=== PATIENT | male | born 1975 | race Caucasian/White ===

== ENCOUNTER 2020-07-05 13:43 | Emergency (ER) | payer BC ==
[2020-07-05] MEDS ORDERED: Sodium Chloride 0.9% 10 ML Syringe FLUSH PRN (14:22)
[2020-07-05] MEDS ORDERED: Famotidine 20 MG/2 ML SDV IVPUSH ONE (14:23)
[2020-07-05] MEDS ORDERED: Ondansetron 4 MG/2 ML SDV IVPUSH ONE (14:23)
[2020-07-05] MEDS ORDERED: Sodium Chloride 0.9% 1,000 ML IV SCH (14:30)
[2020-07-05] MEDS ORDERED: HYDROmorphone 1 MG/ML Syringe IVPUSH ONE (14:53)
--- NOTE | 2020-07-05 15:39 | EDM.PDOC ---
ED HPI GENERAL MEDICAL PROBLEM - General Chief Complaint: Chest Pain Stated Complaint: CHEST PAIN Time Seen by Provider: 07/05/20 14:11 Source of Information: Reports: Patient History Limitations: Reports: No Limitations - History of Present Illness INITIAL COMMENTS - FREE TEXT/NARRATIVE: The patient presents with left sided chest pain and upper abdominal pain. This has been going on for a week. He has been drinking heavily for a few months. He says he quit a few days ago and he has been taking some kratom to help with the drinking. He ways when he takes it he has more pain in his abdomen. He had blood drawn yesterday for an appointment with Sagar Singh. His blood sugar was 402. His A1C is 8.3. His triglycerides were 1753. His cholesterol is 211. His HDL is 20. His lipase was 160. He has no history of heart disease. Onset: Gradual Duration: Week(s): (1) Location: Reports: Chest, Abdomen Quality: Reports: Sharp Severity: Moderate Improves with: Reports: None Worsens with: Reports: None Associated Symptoms: Reports: Chest Pain, Nausea/Vomiting. Denies: Cough, Fever/Chills, Headaches, Shortness of Breath Left Chest Pain Score (Numeric/FACES): 7 - Related Data Allergies Allergy/AdvReac Type Severity Reaction Status Date / Time No Known Allergies Allergy Verified 07/05/20 13:59 Home Meds: Home Meds ClonazePAM [KlonoPIN] 0.5 mg PO DAILY PRN 07/05/20 [History] Hydrocodone/Acetaminophen [Hydrocodone-Acetamin 5-325 mg] 1 - 2 each PO Q6HR PRN #10 tablet 07/05/20 [Rx] LORazepam [Ativan] 1 mg PO DAILY #18 tablet 07/05/20 [Rx] Omeprazole Magnesium [Prilosec Otc] 20 mg PO DAILY PRN 07/05/20 [History] Ondansetron [Zofran ODT] 4 mg PO Q6H PRN #20 tab.dis 07/05/20 [Rx] Past Medical History Cardiovascular History: Reports: High Cholesterol, Hypertension Gastrointestinal History: Reports: GERD Psychiatric History: Reports: Anxiety, Depression - Infectious Disease History Infectious Disease History: Reports: Chicken Pox Social & Family History - Family History Family Medical History: Noncontributory - Tobacco Use Smoking Status *Q: Current Every Day Smoker Years of Tobacco use: 20 Packs/Tins Daily: 0.5 - Caffeine Use Caffeine Use: Reports: Coffee, Energy Drinks, Soda, Tea - Alcohol Use Days Per Week of Alcohol Use: 7 Number of Drinks Per Day: 8 Total Drinks Per Week: 56 - Recreational Drug Use Recreational Drug Use: No ED ROS GENERAL - Review of Systems Review Of Systems: See Below Constitutional: Reports: No Symptoms HEENT: Reports: No Symptoms Respiratory: Reports: No Symptoms Cardiovascular: Reports: Chest Pain Endocrine: Reports: No Symptoms GI/Abdominal: Reports: Abdominal Pain, Nausea, Vomiting. Denies: Diarrhea : Reports: No Symptoms ED EXAM, GENERAL - Physical Exam Exam: See Below Exam Limited By: No Limitations General Appearance: Alert, No Apparent Distress Ears: Normal External Exam Nose: Normal Inspection Head: Atraumatic, Normocephalic Neck: Normal Inspection Respiratory/Chest: No Respiratory Distress, Lungs Clear, Normal Breath Sounds Cardiovascular: Regular Rate, Rhythm, No Edema, No Murmur GI/Abdominal: Soft, Non-Tender, No Organomegaly, No Mass Back Exam: Normal Inspection Extremities: Normal Inspection EKG INTERPRETATION EKG Date: 07/05/20 Time: 14:09 Rhythm: NSR Rate (Beats/Min): 83 Alvin: Normal P-Wave: Present QRS: Normal ST-T: Normal QT: Normal Course - Vital Signs Last Recorded V/S: Last Vital Signs Temp 97.1 F 07/05/20 13:54 Pulse 91 07/05/20 13:54 Resp 16 07/05/20 13:54 BP 151/97 H 07/05/20 13:54 Pulse Ox 95 07/05/20 13:54 - Orders/Labs/Meds Orders: Active Orders 24 hr Category Date Time Status Cardiac Monitoring [RC] . DIRECTED Care 07/05/20 14:22 Active EKG Documentation Completion [RC] ASDIRECTED Care 07/05/20 14:21 Active Peripheral IV Care [RC] . DIRECTED Care 07/05/20 14:22 Active Abdomen Pelvis wo Cont [CT] Stat Exams 07/05/20 14:23 Taken Chest 2V [CR] Stat Exams 07/05/20 14:22 Taken UA W/MICROSCOPIC [URIN] Stat Lab 07/05/20 14:22 Ordered Sodium Chloride 0.9% [Normal Saline] 1,000 ml Med 07/05/20 14:30 Active IV .BOLUS Sodium Chloride 0.9% [Saline Flush] Med 07/05/20 14:22 Active 10 ml FLUSH ASDIRECTED PRN Peripheral IV Insertion Adult [OM.PC] Stat Oth 07/05/20 14:22 Ordered EKG 12 Lead [EK] Stat Ther 07/05/20 14:21 Ordered Medication Orders Sodium Chloride (Normal Saline) 1,000 mls @ 1,000 mls/hr IV .BOLUS DARLYN Last Admin: 07/05/20 15:12 Dose: 1,000 mls/hr Documented by: BOLA Sodium Chloride (Saline Flush) 10 ml FLUSH ASDIRECTED PRN PRN Reason: Keep Vein Open Last Admin: 07/05/20 15:14 Dose: 10 ml Documented by: BOLA Labs: Laboratory Tests 07/05/20 07/05/20 Range/Units 14:50 14:50 WBC 8.19 (4.23-9.07) K/mm3 RBC 4.74 (4.63-6.08) M/mm3 Hgb 15.6 (13.7-17.5) gm/dl Hct 41.5 (40.1-51.0) % MCV 87.6 (79.0-92.2) fl MCH 32.9 H (25.7-32.2) pg MCHC 37.6 H (32.2-35.5) g/dl RDW Std Deviation 39.3 (35.1-43.9) fL Plt Count 151 L (163-337) K/mm3 MPV 12.1 (9.4-12.3) fl Neut % (Auto) 64.0 (34.0-67.9) % Lymph % (Auto) 19.4 L (21.8-53.1) % Pope % (Auto) 9.6 (5.3-12.2) % Eos % (Auto) 5.0 (0.8-7.0) Baso % (Auto) 1.1 (0.1-1.2) % Neut # (Auto) 5.24 (1.78-5.38) K/mm3 Lymph # (Auto) 1.59 (1.32-3.57) K/mm3 Pope # (Auto) 0.79 (0.30-0.82) K/mm3 Eos # (Auto) 0.41 (0.04-0.54) K/mm3 Baso # (Auto) 0.09 H (0.01-0.08) K/mm3 Manual Slide Review Sodium 132 L (136-145) mEq/L Potassium TNP Chloride 98 (98-107) mEq/L Carbon Dioxide 16 L (21-32) mEq/L Anion Gap TNP BUN TNP Creatinine TNP Est Cr Clr Drug Dosing TNP Estimated GFR (MDRD) TNP BUN/Creatinine Ratio TNP Glucose TNP Calcium TNP Total Bilirubin TNP AST TNP ALT TNP Alkaline Phosphatase TNP Troponin I < 0.017 (0.00-0.056) ng/mL Total Protein TNP Albumin TNP Globulin TNP Albumin/Globulin Ratio TNP Lipase 872 H (73-393) U/L Ethyl Alcohol TNP Meds: Medications Generic Name Dose Route Start Last Admin Trade Name Freq PRN Reason Stop Dose Admin Sodium Chloride 1,000 mls @ 1,000 mls/hr 07/05/20 14:30 07/05/20 15:12 Normal Saline IV 1,000 mls/hr .BOLUS DARLYN Administration Sodium Chloride 10 ml 07/05/20 14:22 07/05/20 15:14 Saline Flush FLUSH 10 ml ASDIRECTED PRN Administration Keep Vein Open Discontinued Medications Generic Name Dose Route Start Last Admin Trade Name Freq PRN Reason Stop Dose Admin Famotidine 20 mg 07/05/20 14:23 07/05/20 15:14 Pepcid IVPUSH 07/05/20 14:24 20 mg ONETIME ONE Administration Hydromorphone HCl 1 mg 07/05/20 14:53 07/05/20 15:12 Dilaudid IVPUSH 07/05/20 14:54 1 mg ONETIME ONE Administration Ondansetron HCl 4 mg 07/05/20 14:23 07/05/20 15:11 Zofran IVPUSH 07/05/20 14:24 4 mg ONETIME ONE Administration - Re-Assessments/Exams Free Text/Narrative Re-Assessment/Exam: 07/05/20 15:40 I ordered an IV NS 1L bolus, zofran 4mg IV, dilaudid 1mg IV, labs, EKG, CXR and CT of his abdomen and pelvis. His CXR shows nothing acute. His EKG shows a NSR with no acute changes. His CT shows findings suspicious for mild acute pancreatitis. Otherwise no significant acute abnormality. Enlarged, fatty liver. Lab called me and his blood is very lypemic. They cannot run much without getting errors. His CBC looks good. His lipase is normal at 344. They think they get me a blood sugar and troponin. 07/05/20 16:58 His troponin is negative. They redid the lipase and it was elevated at 872. That is more consistent with the CT findings. He is not sick enough to be admitted. I will discharge him home with some ativan, zofran and something for pain. Departure - Departure Time of Disposition: 17:10 Disposition: Home, Self-Care 01 Condition: Good Clinical Impression: Atypical chest pain Pancreatitis Qualifiers: Chronicity: acute Pancreatitis type: alcohol induced Acute pancreatitis complication: no infection or necrosis Qualified Code(s): K85.20 - Alcohol induced acute pancreatitis without necrosis or infection Prescriptions: LORazepam [Ativan] 1 mg PO DAILY #18 tablet Hydrocodone/Acetaminophen [Hydrocodone-Acetamin 5-325 mg] 1 - 2 each PO Q6HR PRN #10 tablet PRN Reason: Pain Ondansetron [Zofran ODT] 4 mg PO Q6H PRN #20 tab.dis PRN Reason: Nausea\vomiting Referrals: Sagar Singh PA-C [Primary Care Provider] - 1 Week Forms: ED Department Discharge Additional Instructions: Drink plenty of fluids and not alcohol. Start with a clear liquid diet like water, juice, broth and advance as tolerated. Follow up with Sagar Singh. Please return if you are worse. When your stomach feel better start the metformin. Sepsis Event Note (ED) - Evaluation Sepsis Screening Result: No Definite Risk - Focused Exam Vital Signs: Vital Signs Temp Pulse Resp BP Pulse Ox 07/05/20 13:54 97.1 F 91 16 151/97 H 95 - My Orders Last 24 Hours: My Active Orders 07/05/20 14:21 EKG Documentation Completion [RC] ASDIRECTED EKG 12 Lead [EK] Stat 07/05/20 14:22 Cardiac Monitoring [RC] . DIRECTED Peripheral IV Care [RC] . DIRECTED Chest 2V [CR] Stat UA W/MICROSCOPIC [URIN] Stat Sodium Chloride 0.9% [Saline Flush] 10 ml FLUSH ASDIRECTED PRN Peripheral IV Insertion Adult [OM.PC] Stat 07/05/20 14:23 Abdomen Pelvis wo Cont [CT] Stat 07/05/20 14:30 Sodium Chloride 0.9% [Normal Saline] 1,000 ml IV .BOLUS - Assessment/Plan Last 24 Hours: My Active Orders 07/05/20 14:21 EKG Documentation Completion [RC] ASDIRECTED EKG 12 Lead [EK] Stat 07/05/20 14:22 Cardiac Monitoring [RC] . DIRECTED Peripheral IV Care [RC] . DIRECTED Chest 2V [CR] Stat UA W/MICROSCOPIC [URIN] Stat Sodium Chloride 0.9% [Saline Flush] 10 ml FLUSH ASDIRECTED PRN Peripheral IV Insertion Adult [OM.PC] Stat 07/05/20 14:23 Abdomen Pelvis wo Cont [CT] Stat 07/05/20 14:30 Sodium Chloride 0.9% [Normal Saline] 1,000 ml IV .BOLUS
[2020-07-05] MEDS ORDERED: HYDROmorphone 0.5 MG/0.5 ML Syringe IVPUSH ONE (17:14)
== END 2020-07-05 17:36 | disposition home or self-care (01) ==
LOC: JD.ED 13:43
DX: K85.20 Alcohol induced acute pancreatitis without necrosis or infection (principal); R07.89 Other chest pain; F17.210 Nicotine dependence, cigarettes, uncomplicated; I10 Essential (primary) hypertension
CPT/HCPCS: 36415; 71046; 74176; 80053; 83690; 84484; 85025; 93005; 96361; 96374; 96375; 99285; J1170; J2405; J3490; J7030; 93010; 99284